=== PATIENT | male | born 2005 | race Caucasian/White ===

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

== ENCOUNTER 2025-09-04 08:34 | Emergency (ER) | payer OTHER, SELFPAY ==
[2025-09-04 08:43] VITALS: BP 127/86; PULSE 71; RESP 18; TEMP 36.4; O2SAT 100; BMI 25.7
[2025-09-04 08:57] LABS: Add Manual Diff / Slide Review NO; Hematocrit 45.1 % (41-53); Hemoglobin 15.4 g/dL (13.5-17.5); Lymphocytes Absolute Auto 2300 /uL (1100-4500); Mean Corpuscular HGB Conc 34.2 % (30-36); Mean Corpuscular Hemoglobin 28.6 PG (26-34); Mean Corpuscular Volume 83.6 fL (80-100); Platelet Count 324 X10^3/uL (150-400)
[2025-09-04 09:14] LABS: Alanine Aminotransferase 29 IU/L (<50); Albumin 5.0 g/dL (3.5-5.0); Albumin Globulin Ratio 1.5 (1.0-2.8); Alkaline Phosphatase 87 U/L (38-126); Blood Urea Nitrogen 9 mg/dL (9-20); Calcium 9.5 mg/dL (8.4-10.2); Carbon Dioxide 20 mmol/L (22-32); Chloride 103 mmol/L (98-107); Estimated Glomerular Filt Rate > 60 mL/min (>60); Globulin 3.3 g/dL (1.7-4.1); Glucose 130 mg/dL (70-99); HEMOLYSIS < 15 (0-50); Lipase 67 U/L (23-300); Potassium 3.8 mmol/L (3.4-5.1); Sodium 138 mmol/L (137-145); Total Protein 8.3 g/dL (6.3-8.2)
--- NOTE | 2025-09-04 09:14 | ED.ABDPAIN ---
HPI - Abdominal Pain General Chief Complaint: Abdominal Pain Stated Complaint: Stomach pain this morning Time Seen by Provider: 09/04/25 09:12 Mode of arrival: Ambulatory History of Present Illness HPI narrative: Patient here with family for onset of right lower quadrant pain 3 hours ago. Denies abdominal streaking history. Denies any allergies medications. No urinary complaints. No back pain. Pain worse with palpation and movement. There is McBurney point tenderness. Related Data Previous Rx's ?Medication ?Instructions ?Recorded hydrocodone 5 mg-acetaminophen 325 1 tab PO Q6H PRN pain #20 tabs 09/04/25 mg tablet ibuprofen 800 mg tablet 800 mg PO Q8H PRN pain #20 tabs 09/04/25 ondansetron 4 mg disintegrating 4 mg PO Q6H PRN nausea and 09/04/25 tablet vomiting #20 tabs tamsulosin 0.4 mg capsule 0.4 mg PO DAILY #7 caps 09/04/25 Allergies Allergy/AdvReac Type Severity Reaction Status Date / Time No Known Allergies Allergy Uncoded 09/04/25 08:42 Review of Systems Review of Systems Narrative: GENERAL: Negative chills, fatigue, malaise, fever, sweats. HEENT: Negative sinus pain, ear pain, sore throat RESPIRATORY: Negative dyspnea, cough CARDIOVASCULAR: Negative chest pain, palpitations GASTROINTESTINAL: Negative vomiting, nausea, positive abdominal pain : Negative dysuria, frequency, hematuria MUSCULOSKELETAL: Negative muscle or bony pain SKIN: Negative rash, skin lesions NEUROLOGIC: Negative weakness, numbness ROS Unobtainable: All systems reviewed & are unremarkable except as noted in HPI and below Patient History Smoking Status: Unknown if ever smoked alcohol intake frequency: 0-2 drinks per day Exam Narrative Exam Narrative: GENERAL: in no distress, not toxic not dyspneic HEAD: Normocephalic. EYES: Pupils equal round ENT: Mucous membranes moist. NECK: Trachea midline. CARDIOVASCULAR: Regular rate and rhythm RESPIRATORY: Clear to auscultation. Breath sounds equal bilaterally. No wheezes, rales, or rhonchi. GASTROINTESTINAL: Abdomen soft, reproducible right lower quadrant tenderness. Positive McBurney point tenderness. No peritoneal signs no guarding or rebound. No CVA tenderness. BACK: No flank tenderness. EXTREMITIES: No gross deformities. NEURO: AOx4. Clear speech SKIN: Warm and dry PSYCH: Not anxious, is cooperative Initial Vital Signs Initial Vital Signs: Vital Signs Temperature 97.5 F L 09/04/25 08:43 Pulse Rate 71 09/04/25 08:43 Respiratory Rate 18 09/04/25 08:43 Blood Pressure 127/86 09/04/25 08:43 Pulse Oximetry 100 09/04/25 08:43 Oxygen Delivery Method Room Air 09/04/25 08:43 Course Orders Ordered: ED Orders 09/04/25 08:50 Complete Blood Count AUTO DIFF Stat Comprehensive Metabolic Panel Stat Lipase Stat 09/04/25 09:13 CT abdomen pelvis w con Stat Discontinued Medications Sodium Chloride (Normal Saline 0.9%) 1,000 mls @ 1,000 mls/hr IV BOLUS ONE Stop: 09/04/25 10:11 Last Infusion: 09/04/25 10:57 Dose: Infused Documented By: Admin: 09/04/25 09:20 Dose: 1,000 mls/hr Documented By: HAYDEN Ketorolac Tromethamine (Ketorolac 30 Mg/Ml Vial) 15 mg IV NOW ONE Stop: 09/04/25 10:15 Last Admin: 09/04/25 10:51 Dose: 15 mg Documented By: HAYDEN Morphine Sulfate (Morphine 4 Mg/Ml Inj) 4 mg IV NOW ONE Stop: 09/04/25 09:13 Last Admin: 09/04/25 09:20 Dose: 4 mg Documented By: HAYDEN Ondansetron HCl (Ondansetron 4 Mg/2 Ml Inj) 4 mg IV NOW PRN PRN Reason: Nausea And Vomiting Last Admin: 09/04/25 09:31 Dose: 4 mg Documented By: HAYDEN Ondansetron HCl (Ondansetron 4 Mg Odt) 4 mg PO NOW PRN PRN Reason: Nausea And Vomiting Tamsulosin HCl (Tamsulosin 0.4 Mg Capsule) 0.4 mg PO NOW ONE Stop: 09/04/25 10:15 Last Admin: 09/04/25 10:51 Dose: 0.4 mg Documented By: HAYDEN Vital Signs Vital signs: Vital Signs - 8 hr 09/04/25 08:43 09/04/25 09:27 09/04/25 09:27 Temperature 97.5 F L Pulse Rate 71 68 Respiratory Rate 18 Blood Pressure 127/86 129/80 Pulse Oximetry 100 96 Oxygen Delivery Method Room Air 09/04/25 09:30 09/04/25 09:30 09/04/25 09:42 Temperature Pulse Rate 78 68 Respiratory Rate Blood Pressure 133/82 Pulse Oximetry 98 99 Oxygen Delivery Method 09/04/25 09:42 09/04/25 10:00 09/04/25 10:00 Temperature Pulse Rate 89 Respiratory Rate Blood Pressure 152/67 H 119/73 Pulse Oximetry 92 Oxygen Delivery Method 09/04/25 10:30 09/04/25 10:30 Temperature Pulse Rate 85 Respiratory Rate Blood Pressure 118/70 Pulse Oximetry 95 Oxygen Delivery Method MDM - Abdominal Pain Lab Data 09/04/25 08:50 09/04/25 08:50 Labs: Lab Results 09/04/25 Range/Units 08:50 WBC 9.4 (4.5-11.0) X10^3/uL RBC 5.40 (4.5-5.9) X10^6/uL Hgb 15.4 (13.5-17.5) g/dL Hct 45.1 (41-53) % MCV 83.6 (80-100) fL MCH 28.6 (26-34) PG MCHC 34.2 (30-36) % RDW 13.0 (11.6-14.8) % Plt Count 324 (150-400) X10^3/uL Neut % (Auto) 67.0 (50-75) % Lymph % (Auto) 24.3 L (25-40) % Ector % (Auto) 4.9 (3-14) % Eos % (Auto) 3.1 (2-4) % Baso % (Auto) 0.7 (0-2) % Neut # (Auto) 6300 (9086-0618) /uL Lymph # (Auto) 2300 (1512-5439) /uL Ector # (Auto) 500 (0-900) /uL Eos # (Auto) 300 (0-450) /uL Baso # (Auto) 100 (0-100) /uL Sodium 138 (137-145) mmol/L Potassium 3.8 (3.4-5.1) mmol/L Chloride 103 (98-107) mmol/L Carbon Dioxide 20 L (22-32) mmol/L BUN 9 (9-20) mg/dL Creatinine 0.73 (0.66-1.25) mg/dL Estimated GFR > 60 (>60) mL/min BUN/Creatinine Ratio 12.3 (6-22) Glucose 130 H (70-99) mg/dL Calcium 9.5 (8.4-10.2) mg/dL Total Bilirubin 0.6 (0.2-1.3) mg/dL AST 31 (17-59) IU/L ALT 29 (<50) IU/L Alkaline Phosphatase 87 (38-126) U/L Total Protein 8.3 H (6.3-8.2) g/dL Albumin 5.0 (3.5-5.0) g/dL Globulin 3.3 (1.7-4.1) g/dL Albumin/Globulin Ratio 1.5 (1.0-2.8) Lipase 67 (23-300) U/L Point of care testing: Urine Dip Bedside Urine Glucose Negative Bedside Urine Bilirubin - Negative Bedside Urine Ketone - Negative Urine Specific [place] 1.010 Bedside Urine Occult Blood +++ Bedside Urine pH 8.0 Bedside Urine Protein +/- 15 Bedside Urine Urobilinogen - Negative Bedside Urine Nitrite - Negative Bedside Urine Leukocytes - Negative Esterase Imaging Data CT scan - abdomen/pelvis: Radiologist's Impression: [place] [address] CT Scan Report Signed Patient: Erwin Frey MR#: [id number] : 2005 Acct:[id number] Age/Sex: 20 / M Date of Service: 09/04/25 Loc: ED Accession Number: [id number] Procedure: CT abdomen pelvis w con Ordering Provider: Derrell Garcia MD PROCEDURE: CT ABDOMEN PELVIS W CON INDICATIONS: Right lower quadrant pain TECHNIQUE: After the administration of intravenous contrast, axial sections acquired from the lung bases to the pubic symphysis. Coronal and sagittal reformats were performed. For radiation dose reduction, the following was used: automated exposure control, adjustment of mA and/or kV according to patient size. COMPARISON: None. FINDINGS: Image quality: Diagnostic. Lower Chest: No significant findings. ABDOMEN: Liver: No solid mass. Gallbladder: No radiopaque gallstones or wall thickening. Biliary ducts: No biliary dilation. Pancreas: No ductal dilation. Spleen: Size is within normal limits. Adrenal Glands: No adrenal nodules. Kidneys and Ureters: Obstructing 2 millimeter stone in the proximal right ureter, resulting in moderate hydronephrosis, perinephric fat stranding and delayed nephrogram. Stomach and Bowel: Normal colonic caliber, without significant wall thickening. Normal appendix. Peritoneum: No abnormal intraperitoneal fluid. No free air. Ventral Wall: No significant ventral hernia. Abdominal Nodes: No retroperitoneal or mesenteric adenopathy by size criteria. Vessels: Aorta and inferior vena cava are normal in size. PELVIS: Pelvic Organs: Unremarkable. Bladder: No bladder wall thickening, accounting for underdistention. Pelvic Nodes: No enlarged lymph nodes. Miscellaneous: No inguinal hernias are seen. Bones: No aggressive osseous abnormality. IMPRESSION: Obstructing 2 millimeter stone in the proximal right ureter resulting in moderate hydronephrosis, delayed nephrogram and perinephric fat stranding. Dictated by: Karsten Naqvi M.D. on 09/04/2025 at 9:52 Approved by: Karsten Naqvi M.D. on 09/04/2025 at 9:53 [facility] Narrative Medical decision making narrative: Patient here with family for onset of right lower quadrant pain 3 hours ago. Denies abdominal streaking history. Denies any allergies medications. No urinary complaints. No back pain. Pain worse with palpation and movement. There is McBurney point tenderness. MDM After history and exam, CBC CMP morphine Zofran normal saline CT abdomen pelvis urinalysis Differential considered: Includes but not limited to appendicitis kidney stone UTI bowel obstruction volvulus intussusception Medical records reviewed: No recent visit for this complaint Lab Test results independently reviewed as above. Pertinent findings: WBC 9.4 AST 31 ALT 29 lipase 67 sodium 138 potassium 3.8 BUN 9 creatinine 0.73 GFR greater than 60, urinalysis positive blood negative nitrite negative leukocyte esterase Imaging studies independently reviewed: CT abdomen pelvis 2 mm proximal right ureteral stone with hydronephrosis. Consultations: None indicated at this time. Re-evaluations: 10:53 a.m.. Updated patient and family results. Patient is pain-free. Reviewed results with them and treatment plan and follow up with Urology. They agree. Work note provided. They desire discharge home. Discussion: Appropriate for discharge home. Patient is able to void. Return precautions with patient and family. Work note provided prescriptions provided urology referral provided. They desire discharge home. Diagnosis: Ureteral stone Discharge Plan Departure Patient Disposition: Home Clinical Impression: Right ureteral stone Instructions: DI for Kidney Stones Activity Restrictions/Additional Instructions: No driving operating machinery today or when taking prescribed pain medication. Your pain is caused by kidney stone that should be able to pass. Please call provided urology office today for follow up in a week. Keep well hydrated. Return if worse if any questions or concerns. Prescriptions: New ibuprofen 800 mg tablet 800 mg PO Q8H PRN (Reason: pain) Qty: 20 0RF hydrocodone-acetaminophen 5-325 mg tablet 1 tab PO Q6H PRN (Reason: pain) Qty: 20 0RF tamsulosin 0.4 mg capsule 0.4 mg PO DAILY Qty: 7 0RF ondansetron 4 mg tablet,disintegrating 4 mg PO Q6H PRN (Reason: nausea and vomiting) Qty: 20 0RF Referrals: Benito Pollard, [Physician, Urology] Stand Alone Forms: Patient Portal/API, Work Release Note
[2025-09-04] MEDS: SODIUM CHLORIDE 0.9% 1,000 ML 1000 ML IV (09:20)
[2025-09-04] MEDS: MORPHINE 4 MG/ML INJ IV (09:20)
[2025-09-04 09:27] VITALS: BP 129/80; PULSE 68; O2SAT 96
[2025-09-04 09:30] VITALS: BP 133/82; PULSE 78; O2SAT 98
[2025-09-04] MEDS: ONDANSETRON 4 MG/2 ML INJ IV (09:31)
[2025-09-04 09:42] VITALS: BP 152/67; PULSE 68; O2SAT 99
[2025-09-04 10:00] VITALS: BP 119/73; PULSE 89; O2SAT 92
[2025-09-04 10:30] VITALS: BP 118/70; PULSE 85; O2SAT 95
[2025-09-04] MEDS: TAMSULOSIN 0.4 MG CAPSULE PO (10:51)
[2025-09-04] MEDS: KETOROLAC 30 MG/ML VIAL 15 MG IV (10:51)
== END 2025-09-04 11:35 | disposition home or self-care (01) ==
PROVIDERS: Emergency Provider Emergency Medicine
DX: N20.1 Calculus of ureter (principal)
CPT/HCPCS: 36415; 74177; 80053; 81003; 83690; 85025; 96361; 96374; 96375; 99284; J1885; J2272; J2405; J7030